=== PATIENT | female | born 1980 | race Caucasian/White ===

== ENCOUNTER 2016-09-20 05:53 | Observation (INO) | payer OTHER ==
[~2016-09-20] VITALS: Ht 167.6 cm; Wt 54.0 kg
[~2016-09-20 05:53] MED LIST: IBUP600 PO; OXYC1SOL5 PO; PERI8.6T PO; PREN1TAB30
[2016-09-20 05:59] VITALS: BP 134/65; PULSE 87; RESP 16; TEMP 98.3; O2SAT 100
[2016-09-20] MEDS ORDERED: birthcontrol (06:20)
[2016-09-20] MEDS ORDERED: AMOX875T2 PO (06:20)
--- NOTE | 2016-09-20 06:29 | PD ---
HPI Chief Complaint: Skin Problem Time Seen by Provider: 06:29 Travel History International Travel<30 days: No Contact w/Intl Traveler<30days: No Traveled to known affect area: No History of Present Illness HPI 35-year-old female with no significant medical history, presents to the emergency department for evaluation of painful erythema and edema of the distal left second digit. Patient states she noticed some pain and a small amount of redness lateral to the nail of the left second digit 3 days ago. It had worsened Sunday and she had noticed 3 small lesions in the area of redness. She contacted [facility] physician on-line and was started on Augmentin. Patient has been taking this now for the past 2 days. Symptoms have only worsened. She woke up this morning with increased swelling and taught sensation of the distal affected digit as well as pain in the PIP and MCP joint of that digit. Patient can flex and extend the digit however flexion of the DIP of the affected digit is limited secondary to pain and tight sensation. States that the pad of the digit feels numb. There is also a red streak moving proximately up to the midforearm. Patient denies any fever or chills. States she has otherwise been well. [facility] Past Medical History Medical History: Denies Significant Hx ?: Not LMP: IRREGULAR Past Surgical History Section: Yes Social History Alcohol Use: No Tobacco Use: No Allergies-Medications (Allergen,Severity, Reaction): Coded Allergies: No Known Allergies (Unverified , 09/20/16) Reported Meds & Prescriptions Reported Meds & Active Scripts Active Reported Amoxicillin-Clavulanate 875-125 mg Tab 875 Mg PO BID not for use in CrCl <30 mL/minute [ birthcontrol] Review of Systems Except as stated in HPI: all other systems reviewed are Neg Physical Exam Narrative GENERAL: Well-nourished female patient, ambulatory and in no acute distress SKIN: Warm and dry. On the lateral aspect of the distal portion of the left second digit there is an area of edema and erythema that extends to the lateral aspect of the pad. There are three 2 mm sized whitish lesions with in this erythema. There is mild edema of the affected digit with slight red streak moving proximally from the affected digit to the midforearm. There is tenderness with palpation in the left axilla however I am unable to palpate any obvious lymph nodes. HEAD: Atraumatic. Normocephalic. EYES: Pupils equal and round. No scleral icterus. No injection or drainage. ENT: No nasal bleeding or discharge. Mucous membranes pink and moist. NECK: Trachea midline. CARDIOVASCULAR: Regular rate and rhythm. RESPIRATORY: No accessory muscle use. GASTROINTESTINAL: Abdomen nondistended. MUSCULOSKELETAL: No obvious deformities. No clubbing. No cyanosis. NEUROLOGICAL: Awake and alert. No obvious cranial nerve deficits. Motor grossly within normal limits. Normal speech. PSYCHIATRIC: Appropriate mood and affect; insight and judgment normal. Data Data Last Documented VS Vital Signs Date Time Temp Pulse Resp B/P Pulse Ox O2 Delivery O2 Flow Rate FiO2 09/20/16 05:59 98.3 87 16 134/65 100 Orders Iv Access Insert/Monitor (09/20/16 06:27) Complete Blood Count With Diff (09/20/16 06:27) Basic Metabolic Panel (Bmp) (09/20/16 06:27) Clindamycin Inj (Cleocin Inj) (09/20/16 06:30) Finger ([id number]) (09/20/16 ) Admit Order (Ed Use Only) (09/20/16 07:40) Vancomycin Inj (Vancomycin Inj) (09/20/16 07:45) Consult Hand Surgery (09/20/16 ) Consult Infectious Disease (09/20/16 ) Labs Laboratory Tests Test 09/20/16 06:30 White Blood Count 5.8 TH/MM3 Red Blood Count 4.56 MIL/MM3 Hemoglobin 14.5 GM/DL Hematocrit 41.9 % Mean Corpuscular Volume 91.8 FL Mean Corpuscular Hemoglobin 31.7 PG Mean Corpuscular Hemoglobin 34.6 % Concent Red Cell Distribution Width 12.3 % Platelet Count 220 TH/MM3 Mean Platelet Volume 9.9 FL Neutrophils (%) (Auto) 70.4 % Lymphocytes (%) (Auto) 17.3 % Monocytes (%) (Auto) 9.1 % Eosinophils (%) (Auto) 2.5 % Basophils (%) (Auto) 0.7 % Neutrophils # (Auto) 4.1 TH/MM3 Lymphocytes # (Auto) 1.0 TH/MM3 Monocytes # (Auto) 0.5 TH/MM3 Eosinophils # (Auto) 0.1 TH/MM3 Basophils # (Auto) 0.0 TH/MM3 CBC Comment DIFF FINAL Differential Comment Sodium Level 138 MEQ/L Potassium Level 4.1 MEQ/L Chloride Level 105 MEQ/L Carbon Dioxide Level 26.6 MEQ/L Anion Gap 6 MEQ/L Blood Urea Nitrogen 14 MG/DL Creatinine 0.81 MG/DL Estimat Glomerular Filtration 80 ML/MIN Rate Random Glucose 91 MG/DL Calcium Level 8.8 MG/DL MDM Medical Decision Making Medical Screen Exam Complete: Yes Emergency Medical Condition: Yes Medical Record Reviewed: Yes Differential Diagnosis Herpetic keshav versus paronychia versus felon versus lymphangitis versus cellulitis Narrative Course 35-year-old female presents to the emergency department for evaluation of a full erythema and edema of the distal left second digit. Physical findings are concerning for hepatic lobe however paronychia cannot be ruled out. I discussed the patient might attending physician Dr. Rizzo who also assessed the area and agrees that this is not a typical paronychial presentation. With the associated lymphangitis he suggests contacting hand specialist. I spoke with Dr. Joyner, hand specialist on-call. He recommends admission to medicine, IV antibiotics, and ID consultation if herpetic keshav is suspected. A call has been placed to [facility]. I spoke with Dr. Barnes. Patient will be admitted observation to service. He requests 1 g of vancomycin and consult placed to infectious disease I am contacted by the call center. Pt is to be admitted to [facility] provider despite PCP being on [facility] list. Admitting physician is changed to Dr. Jean. Diagnosis Primary Impression: Paronychia of left index finger Additional Impressions: Lymphangitis Failure of outpatient treatment Admitting Information Admitting Physician Requests: Observation Condition: Stable Aide Mack Sep 20, 2016 06:29
[2016-09-20] MEDS ORDERED: CLINDAMYCIN INJ 600 MG in SODIUM CHLORIDE 0.9% INJ 100 ML IV ONE (06:30)
[2016-09-20 07:06] LABS: AUTOMATED NEUTROPHIL # 4.1 TH/MM3 (1.8-7.7); BASOPHIL % 0.7 % (0.0-2.0); EOSINOPHIL # 0.1 TH/MM3 (0-0.4); EOSINOPHIL % 2.5 % (0.0-4.0); HEMATOCRIT 41.9 % (35.0-46.0); HEMO FLAGS DIFF FINAL; LYMPH % 17.3 % (9.0-44.0); MEAN CELL VOLUME 91.8 FL (80.0-100.0); MEAN CORPUSCULAR HEMOGLOBIN 31.7 PG (27.0-34.0); MEAN CORPUSCULAR HGB CONC 34.6 % (32.0-36.0); MONO % 9.1 % (0.0-8.0); NEUT % 70.4 % (16.0-70.0); PLATELET COUNT 220 TH/MM3 (150-450); RED BLOOD COUNT 4.56 MIL/MM3 (4.00-5.30); RED CELL DISTRIBUTION WIDTH 12.3 % (11.6-17.2); WHITE BLOOD COUNT 5.8 TH/MM3 (4.0-11.0)
[2016-09-20 07:20] LABS: BICARBONATE 26.6 MEQ/L (21.0-32.0); POTASSIUM 4.1 MEQ/L (3.5-5.1)
[2016-09-20] MEDS ORDERED: VANCOMYCIN INJ 1,000 MG in SODIUM CHLOR 0.9% 250 ML INJ 250 ML IV ONE (07:45)
--- NOTE | 2016-09-20 08:21 | RADRPT ---
EXAM DATE/TIME: 09/20/2016 07:20 [facility] COMPARISON: No previous studies available for comparison. INDICATIONS: Left hand, second digit pain, swelling and redness. MEDICAL HISTORY: None. SURGICAL HISTORY: None. ENCOUNTER: Initial ACUITY: 2 days PAIN SCORE: 6/10 LOCATION: Left hand, second digit FINDINGS: There is soft tissue swelling involving the left index finger. There is no acute fracture, dislocati on or radiopaque foreign body. CONCLUSION: 1. Soft tissue swelling involving the left index finger. 2. No acute fracture, dislocation or radiopaque foreign body. Dylon Steel MD on September 20, 2016 at 8:14 Board Certified Radiologist. This report was verified electronically.
[2016-09-20] MEDS ORDERED: diphenhydrAMINE HCL 50 MG/ML VIAL IV PUSH ONE (08:30)
--- NOTE | 2016-09-20 09:14 | HHI.HP ---
HPI Service [facility] Hospitalists Primary Care Physician Devon Zhu MD Admission Diagnosis L 2nd digit paronychia v herpetic keshav; lymphangitis Chief Complaint: Left hand second digit infection and lymphangitis Travel History International Travel<30 Days: No Contact w/Intl Traveler <30 Da: No Traveled to Known Affected Are: No History of Present Illness Mrs. Leach is a pleasant 35 y/o WF without significant medical history, who presented to the ED on 09/20/16 for evaluation of painful swelling and erythema of the distal left second digit. She reports that she initially noticed some pain and a small amount of redness lateral to the nail of the left second digit 3 days ago. She applied Bacitracin to it and soaked the finger. It had worsened Sunday and she had noticed 3 small white lesions on the lateral aspect in the area of redness. [facility] and was started on Augmentin 2 days ago. Patient has been taking 4 doses. Her symptoms worsened last night and this morning when she woke up she noted increased swelling and taught sensation of the distal affected digit as well as pain in the PIP and MCP joint of that digit. She also noted some red streaking in the mid forearm and tenderness in the left axilla. Pt also reports that the pad of the digit feels numb. She denies any fever or chills. She denies any known exposure to herpes virus or any previous history of HSV. Review of Systems Constitutional: DENIES: Fever, Chills Respiratory: DENIES: Cough, Shortness of breath Cardiovascular: DENIES: Chest pain Gastrointestinal: DENIES: Abdominal pain, Nausea, Vomiting Integumentary: COMPLAINS OF: Abnormal pigmentation Hematologic/lymphatic: DENIES: Lymphadenopathy Neurologic: COMPLAINS OF: Paresthesias, DENIES: Headache, Localized weakness Past Family Social History Past Medical History Seborrheic dermatitis Past Surgical History Cesarian section x 1 Reported Medications Amoxicillin-Clavulanate 875-125 mg Tab 875 Mg PO BID not for use in CrCl <30 mL/minute [ birthcontrol] Allergies: Coded Allergies: Vancomycin (Verified Adverse Reaction, Intermediate, Itching, 09/20/16) itching and redness after half of infusion. 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 Pt lives locally with her and daughter Physical Exam Vital Signs Vital Signs Date Time Temp Pulse Resp B/P Pulse Ox O2 Delivery O2 Flow Rate FiO2 09/20/16 05:59 98.3 87 16 134/65 100 Physical Exam GENERAL: This is a well-nourished, well-developed patient, in no apparent distress. HEENT: Atraumatic. Normocephalic. No temporal or scalp tenderness. No scleral icterus. Airway patent. NECK: Trachea midline, supple, nontender. CARDIO: Regular. RESP: CTA bilaterally. No wheezes, rales, or rhonchi. ABD: +BS, soft, non-tender, nondistended. EXT: Lateral aspect of the distal portion of the left second digit there is an area of edema and erythema that extends to the lateral aspect of the pad. There are three 2 mm sized whitish lesions within this area of erythema, no vesicales noted. Mild edema of the 2nd digit with slight red streak moving proximally from the affected digit to the midforearm. Decreased flexion of the DIP and PIP joint secondary to pain and swelling of the left 2nd digit. There is tenderness with palpation in the left axilla however no palpable lymph nodes noted. NEURO: Awake and alert. Motor and sensory grossly within normal limits. Normal speech. Laboratory Laboratory Tests Test 09/20/16 06:30 White Blood Count 5.8 Red Blood Count 4.56 Hemoglobin 14.5 Hematocrit 41.9 Mean Corpuscular Volume 91.8 Mean Corpuscular Hemoglobin 31.7 Mean Corpuscular Hemoglobin 34.6 Concent Red Cell Distribution Width 12.3 Platelet Count 220 Mean Platelet Volume 9.9 Neutrophils (%) (Auto) 70.4 Lymphocytes (%) (Auto) 17.3 Monocytes (%) (Auto) 9.1 Eosinophils (%) (Auto) 2.5 Basophils (%) (Auto) 0.7 Neutrophils # (Auto) 4.1 Lymphocytes # (Auto) 1.0 Monocytes # (Auto) 0.5 Eosinophils # (Auto) 0.1 Basophils # (Auto) 0.0 CBC Comment DIFF FINAL Differential Comment Sodium Level 138 Potassium Level 4.1 Chloride Level 105 Carbon Dioxide Level 26.6 Anion Gap 6 Blood Urea Nitrogen 14 Creatinine 0.81 Estimat Glomerular Filtration 80 Rate Random Glucose 91 Calcium Level 8.8 Result Diagram: 09/20/16 0630 09/20/16 0630 Septic Shock Reassessment Heart: Regular rate and rhythm Lungs: Clear Skin: Warm Peripheral Pulses: Bounding Right Radial Bounding Left Radial Bounding Right Popliteal Bounding Left Popliteal Bounding Right Dorsalis Pedis Bounding Left Dorsalis Pedis Bounding Right Posterior Tibial Bounding Left Posterior Tibial Capillary Refill: <2 seconds Assessment and Plan Problem List: (1) Lymphangitis Status: Acute Plan: - Pt admitted with a four day history worsening erythema, swelling of the distal lateral aspect of the left hand second digit. This morning noted red streaking up the left forearm and tenderness in the left axilla. - Pt was given a dose of Clindamycin in the ER and was started on Vancomycin but she developed some itching and slight generalized skin erythema on the chest and back and the Vancomycin was stopped and the pt was given a dose of Benadryl. - We will continue the Clindamycin 600mg IV Q8H for now - ID and Hand Surgery has been consulted. - There is concern for possible Herpetic keshav with the noted lesions on the distal, lateral aspect of the left 2nd digit but pt unaware of any exposure to HSV and no personal history of HSV - Await ID evaluation - Benadryl PRN - Pain meds PRN - Zofran PRN - Supportive care (2) Paronychia of left index finger Status: Acute Plan: - See above. Assessment and Plan Patient examined. Assessment and plan formulated with Christina Brown PA-C. I agree with the above. cellulitis with lymphangitic spread from left index finger. 3 small lesions..not vesicles on left finger tip. probably strep cellulitis but possible underlying herpetic keshav. discussed with ID. improving on clinda already. pt prefers going home today and will return if worsens. clinda and acyclovir x 1 week. Christina Brown Sep 20, 2016 09:14 Kemal Jean MD Sep 20, 2016 14:52
[2016-09-20] MEDS ORDERED: ONDANSETRON HCL 4 MG/2 ML VIAL IV PRN (09:15)
[2016-09-20] MEDS ORDERED: ACETAMINOPHEN 325 MG TAB PO PRN (09:15)
[2016-09-20] MEDS ORDERED: traMADol HCL 50 MG TAB PO PRN (10:00)
--- NOTE | 2016-09-20 13:49 | PD.CONS ---
History of Present Illness Service Infectious disease Consult Requested By Rosalee Oakes Reason for Consult Evaluate patient with finger infection, herpetic keshav versus paronychia Primary Care Physician Devon Zhu MD Diagnoses: History of Present Illness Patient seen and examined. Records reviewed. 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 She initially noted this redness on the lateral aspect of her left second finger. It was slightly red and painful and it felt like she had a hangnail. She kept it covered and went to work, but it the redness started getting worse and he started going to the base of her left second fingernail. She called her primary care physician, and they did a telemedicine evaluation and she was treated for possible paronychia and was given Augmentin. The night prior to admission it was getting more painful, and she started noticing redness going up her hand and forearm with some discomfort in her left armpit. She did not have any fever or chills or sweats. She has not had any sore throat or any other respiratory complaints. She presented to the hospital for further evaluation and treatment. IV vancomycin and fpc during the infusion she started getting redness on her face and some itching. It was stopped. She was put on clindamycin, and she has noted improvement in the area of red streaks in her hand and forearm. Since admission she has not been febrile. Her WBC is normal. She had noted some improvement in the swelling and she is able to move her finger a little bit better than before she came in. She has no prior history of cold sore. Infectious disease consultation requested to evaluate the patient. Review of Systems Constitutional: DENIES: Fever, Chills Eyes: DENIES: Eye pain Ears, nose, mouth, throat: DENIES: Nasal discharge, Oral lesions, Throat pain Respiratory: DENIES: Cough, Shortness of breath Cardiovascular: DENIES: Chest pain Gastrointestinal: COMPLAINS OF: Abdominal pain, DENIES: Nausea, Vomiting Past Family Social History Allergies: Coded Allergies: Vancomycin (Verified Adverse Reaction, Intermediate, Itching, 09/20/16) itching and redness after half of infusion. 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 Pt lives locally with her and daughter Physical Exam Vital Signs Vital Signs Date Time Temp Pulse Resp B/P Pulse Ox O2 Delivery O2 Flow Rate FiO2 09/20/16 05:59 98.3 87 16 134/65 100 Physical Exam GENERAL: This is a well-nourished, well-developed female, in no apparent distress. SKIN: Cool and dry. No generalized rash HEAD: Atraumatic. Normocephalic. No temporal or scalp tenderness. EYES: Extraocular motions intact. No scleral icterus. No injection or drainage. ENT: Nose without bleeding, or purulent drainage MUSCULOSKELETAL: L hand - has area of induration and redness at base of her L second fuingernail, with swelling of that distal finger. She has 3 discrete areas of round ?pustules that measures about 2-3 mm size. There is still afaint area on erythema on dorsum of her L hand proximal to the 2nd MCP, and very minimal going up her forearm. Did not feel any adenopathy in her L axilla Laboratory Laboratory Tests Test 09/20/16 06:30 White Blood Count 5.8 Red Blood Count 4.56 Hemoglobin 14.5 Hematocrit 41.9 Mean Corpuscular Volume 91.8 Mean Corpuscular Hemoglobin 31.7 Mean Corpuscular Hemoglobin 34.6 Concent Red Cell Distribution Width 12.3 Platelet Count 220 Mean Platelet Volume 9.9 Neutrophils (%) (Auto) 70.4 Lymphocytes (%) (Auto) 17.3 Monocytes (%) (Auto) 9.1 Eosinophils (%) (Auto) 2.5 Basophils (%) (Auto) 0.7 Neutrophils # (Auto) 4.1 Lymphocytes # (Auto) 1.0 Monocytes # (Auto) 0.5 Eosinophils # (Auto) 0.1 Basophils # (Auto) 0.0 CBC Comment DIFF FINAL Differential Comment Sodium Level 138 Potassium Level 4.1 Chloride Level 105 Carbon Dioxide Level 26.6 Anion Gap 6 Blood Urea Nitrogen 14 Creatinine 0.81 Estimat Glomerular Filtration 80 Rate Random Glucose 91 Calcium Level 8.8 Result Diagram: 09/20/1662909/20/16629 Imaging Finger X-Ray 2/8/17 0000 Signed Impressions: Service Date/Time: Tuesday, September 20, 2016 07:20 - CONCLUSION: 1. Soft tissue swelling involving the left index finger. 2. No acute fracture, dislocation or radiopaque foreign body. Dylon Steel MD Assessment and Plan Assessment and Plan IMPRESSION L index finger infection, possibly started as Herpetic keshav but developed secondary infection with lymphangitis - has responded to clindamycin RECOMMENDATION Give Acyclovir 400 tid x 7 days - will offer healing, resolution quicker, though no formal study to look at this; has been beneficial to other HSV skin infections Give Clinda for the lymphangitis 300 tid 7-10 days Clinically looks stable from ID standpoint Thank you for this consultation Discussed Condition With Explained plan to patient D/W Tonya Ny MD Sep 20, 2016 13:49
[2016-09-20] MEDS ORDERED: diphenhydrAMINE HCL 25 MG CAP PO PRN (14:15)
[2016-09-20] MEDS: CLINDAMYCIN INJ 600 MG in SODIUM CHLORIDE 0.9% INJ 100 ML IV SCH ×2 (14:22→15:00)
[2016-09-20] MEDS ORDERED: CLIN1CAP6 PO (14:35)
[2016-09-20] MEDS ORDERED: ACYC400T PO (14:35)
--- NOTE | 2016-09-20 14:37 | HHI.DCPOC ---
Discharge Care Plan Diagnosis: (1) Lymphangitis (2) Paronychia of left index finger Goals to Promote Your Health * To prevent worsening of your condition and complications * To maintain your health at the optimal level Directions to Meet Your Goals Take your medications as prescribed Follow your dietary instruction Follow activity as directed Keep your appointments as scheduled Take your immunizations and boosters as scheduled If your symptoms worsen call your PCP, if no PCP go to Urgent Care Center or Emergency Room Smoking is Dangerous to Your Health. Avoid second hand smoke Call the 24-hour hour crisis hotline for domestic abuse at Christina Brown Sep 20, 2016 14:37
[2016-09-20] MEDS ORDERED: ACYCLOVIR 200 MG CAP PO SCH (15:00)
== END 2016-09-20 15:11 | disposition home or self-care (01) ==
LOC: NEPB 05:53 → NEDA 07:45 → UNDOADMOB 07:46 → NEDA 07:46 → NEPB 09:48
PROVIDERS: ADMIT Hospitalist; ATTEND Hospitalist
DX: L03.022 Acute lymphangitis of left finger (principal); L03.012 Cellulitis of left finger; L29.9 Pruritus, unspecified; T36.8X5A Adverse effect of other systemic antibiotics, initial encounter; Y92.239 Unspecified place in hospital as the place of occurrence of the external cause
CPT/HCPCS: 73140; 80048; 85025; 96365; 99284; G0378; J1200; J3370; J7050

== ENCOUNTER 2017-01-27 12:11 | Emergency (ER) | payer OTHER ==
[~2017-01-27] VITALS: Ht 167.6 cm; Wt 54.5 kg
[~2017-01-27 12:11] MED LIST changes: +ACYC400T PO; +AMOX875T2 PO; +CLIN1CAP6 PO; -IBUP600 PO; -OXYC1SOL5 PO; -PERI8.6T PO; -PREN1TAB30; +birthcontrol
[2017-01-27 12:15] VITALS: BP 180/96; PULSE 76; RESP 20; O2SAT 100
[2017-01-27] MEDS ORDERED: SERT-132 PO (12:28)
[2017-01-27] MEDS ORDERED: SODIUM CHLOR 0.9% 1000 ML INJ 1,000 ML IV SCH (13:08)
[2017-01-27] MEDS ORDERED: MECLIZINE HCL 25 MG TAB PO ONE (13:15)
[2017-01-27] MEDS ORDERED: ONDANSETRON HCL 4 MG/2 ML VIAL IV PUSH ONE (13:15)
[2017-01-27 13:42] LABS: AUTOMATED NEUTROPHIL # 10.2 TH/MM3 (1.8-7.7); BASOPHIL # 0.1 TH/MM3 (0-0.2); BASOPHIL % 0.6 % (0.0-2.0); EOSINOPHIL % 0.3 % (0.0-4.0); HEMATOCRIT 39.4 % (35.0-46.0); HEMO FLAGS DIFF FINAL; LYMPH % 6.6 % (9.0-44.0); LYMPHOCYTE # 0.8 TH/MM3 (1.0-4.8); MEAN CELL VOLUME 92.4 FL (80.0-100.0); MEAN CORPUSCULAR HEMOGLOBIN 31.3 PG (27.0-34.0); MEAN CORPUSCULAR HGB CONC 33.9 % (32.0-36.0); MONO % 3.8 % (0.0-8.0); NEUT % 88.7 % (16.0-70.0); PLATELET COUNT 191 TH/MM3 (150-450); RED BLOOD COUNT 4.26 MIL/MM3 (4.00-5.30); RED CELL DISTRIBUTION WIDTH 12.8 % (11.6-17.2); WHITE BLOOD COUNT 11.5 TH/MM3 (4.0-11.0)
[2017-01-27 13:50] LABS: BACTERIA, URINE OCC /hpf; BLOOD, URINE NEG (NEG); COMMENT (UR) CULT NOT INDICATED; CULTURE IF INDICATED CULT NOT INDICATED; GLUCOSE,URINE NEG (NEG); KETONE, URINE 40 mg/dL (NEG); MUCUS URINE FEW /lpf (OCC); NITRITE,URINE NEG (NEG); PH, URINE 7.5 (5.0-8.5); SQUAMOUS EPITHELIAL CELL URINE <1 /hpf (0-5); URINE COLOR YELLOW (YELLW/STRAW)
[2017-01-27 14:01] LABS: ANION GAP 12 MEQ/L (5-15); BICARBONATE 23.4 MEQ/L (21.0-32.0); BLOOD UREA NITROGEN 15 MG/DL (7-18); CHLORIDE 105 MEQ/L (98-107); GLOMERULAR FILTRATION RATE 73 ML/MIN (>89); POTASSIUM 3.6 MEQ/L (3.5-5.1); SODIUM (NA) 140 MEQ/L (136-145)
[2017-01-27 14:03] LABS: ALT (GPT) 21 U/L (10-53); AST (GOT) 17 U/L (15-37)
[2017-01-27 14:05] LABS: ALKALINE PHOSPHATASE 47 U/L (45-117); TOTAL BILIRUBIN ADULT 0.6 MG/DL (0.2-1.0)
--- NOTE | 2017-01-27 14:31 | RADRPT ---
EXAM DATE/TIME: 01/27/2017 14:21 [facility] COMPARISON: No previous studies available for comparison. INDICATIONS : Cephaligia today RADIATION DOSE: 50.12 CTDIvol (mGy) MEDICAL HISTORY : None SURGICAL HISTORY : None. ENCOUNTER: Initial ACUITY: 1 day PAIN SCALE: 7/10 LOCATION: Bilateral head TECHNIQUE: Multiple contiguous axial images were obtained of the head. Using automated exposure control and adj ustment of the mA and/or kV according to patient size, radiation dose was kept as low as reasonably a chievable to obtain optimal diagnostic quality images. FINDINGS: CEREBRUM: The ventricles are normal for age. No evidence of midline shift, mass lesion, hemorrhage or acute in farction. No extra-axial fluid collections are seen. POSTERIOR FOSSA: The cerebellum and brainstem are intact. The 4th ventricle is midline. The cerebellopontine angle i s unremarkable. EXTRACRANIAL: The visualized portion of the orbits is intact. SKULL: The calvaria is intact. No evidence of skull fracture. CONCLUSION: 1. No acute intracranial abnormality. Ashwin Blanco MD on January 27, 2017 at 14:27 Board Certified Radiologist. This report was verified electronically.
[2017-01-27 14:33] VITALS: BP 128/64; PULSE 65; RESP 16; O2SAT 100
--- NOTE | 2017-01-27 14:54 | PD ---
HPI Chief Complaint: Dizziness Time Seen by Provider: 14:50 Travel History International Travel<30 days: No Contact w/Intl Traveler<30days: No Traveled to known affect area: No History of Present Illness HPI 36-year-old female that presents to the ED for evaluation of headache and dizziness as well as nausea and vomiting. Per patient she's had this for the past 2 days. Per patient he started yesterday. Per patient he starts with a headache that tends to be severe on the left side and then disappears to this pain with medication and then it turns into a lightheadedness/dizziness. Per patient he feels like the room spinning and she gets nauseous and she vomits. Per patient she also feels like she has ear fullness. She denies any chest pain or shortness of breath or palpitations. Per patient she's never had this before. She does have history of migraine headaches but never like this. She does have a history of high blood pressure when she was . Allergy to vancomycin. Per patient the symptoms continued today which is what made her come here today. Per patient and symptoms to follow the same pattern. Per patient the headache now is not as severe but she feels like the lightheadedness and dizziness is coming. She's been taking [id number] remedies with some relief but the dizziness continues and he feels like the room spinning. Pain per patient is 8 out of 10 and pressure-like and it becomes severe. At this time her headache is 4 out of 10. PFSH Past Medical History ?: Not LMP: 12/30/16 Past Surgical History Section: Yes Social History Alcohol Use: No Tobacco Use: No Substance Use: No Allergies-Medications (Allergen,Severity, Reaction): Coded Allergies: Vancomycin (Verified Adverse Reaction, Intermediate, Itching, 01/27/17) itching and redness after half of infusion. Reported Meds & Prescriptions Reported Meds & Active Scripts Active Reported Sertraline (Sertraline HCl) 50 Mg Tab 50 Mg PO DAILY [ birthcontrol] Review of Systems Except as stated in HPI: all other systems reviewed are Neg Physical Exam Narrative GENERAL: Well-nourished, well-developed patient in no apparent distress. SKIN: Warm and dry. HEAD: Atraumatic. Normocephalic. EYES: Pupils equal and round reactive to light and accommodation. No scleral icterus. No injection or drainage. ENT: No nasal bleeding or discharge. Mucous membranes pink and moist. TMs are clear with no sign of infection or perforation. No mastoid tenderness. Ear canals are intact bilaterally. No lymphadenopathy. Nostril mucosa is red and moist with clear mucus noted. No sinus tenderness to palpation noted. Tonsils are not enlarged or swollen. No ulvua Deviation. Tongue is midline. NECK: Trachea midline. No JVD. No meningeal signs noted CARDIOVASCULAR: Regular rate and rhythm. RESPIRATORY: No accessory muscle use. Clear to auscultation. Breath sounds equal bilaterally. GASTROINTESTINAL: Abdomen soft, non-tender, nondistended. Hepatic and splenic margins not palpable. MUSCULOSKELETAL: Extremities without clubbing, cyanosis, or edema. No obvious deformities. Full range of motion of the upper and lower extremities bilaterally. 2+ pulses bilaterally. 5 out of 5 strength bilaterally. No lumbar, thoracic, cervical spine tenderness to palpation. No lymphadenopathy noted. NEUROLOGICAL: Awake and alert. No obvious cranial nerve deficits. Motor grossly within normal limits. Five out of 5 muscle strength in the arms and legs. Normal speech. PSYCHIATRIC: Appropriate mood and affect; insight and judgment normal. Data Data Last Documented VS Vital Signs Date Time Temp Pulse Resp B/P Pulse Ox O2 Delivery O2 Flow Rate FiO2 01/27/17 14:33 65 16 128/64 100 Room Air Orders Electrocardiogram (01/27/17 13:08) Complete Blood Count With Diff (01/27/17 13:08) Comprehensive Metabolic Panel (01/27/17 13:08) Urinalysis - C+S If Indicated (01/27/17 13:08) Magnesium (Mg) (01/27/17 13:08) Ct Brain W/O Iv Contrast(Rout) (01/27/17 13:08) Iv Access Insert/Monitor (01/27/17 13:08) Ecg Monitoring (01/27/17 13:08) Oximetry (01/27/17 13:08) Ed Urine Pregnancytest Poc (01/27/17 13:08) Ondansetron Inj (Zofran Inj) (01/27/17 13:15) Meclizine (Antivert) (01/27/17 13:15) Sodium Chlor 0.9% 1000 Ml Inj (Ns 1000 M (01/27/17 13:08) Dexamethasone Inj (Decadron Inj) (01/27/17 15:15) Labs Laboratory Tests Test 01/27/17 01/27/17 13:18 13:20 White Blood Count 11.5 TH/MM3 Red Blood Count 4.26 MIL/MM3 Hemoglobin 13.3 GM/DL Hematocrit 39.4 % Mean Corpuscular Volume 92.4 FL Mean Corpuscular Hemoglobin 31.3 PG Mean Corpuscular Hemoglobin 33.9 % Concent Red Cell Distribution Width 12.8 % Platelet Count 191 TH/MM3 Mean Platelet Volume 11.0 FL Neutrophils (%) (Auto) 88.7 % Lymphocytes (%) (Auto) 6.6 % Monocytes (%) (Auto) 3.8 % Eosinophils (%) (Auto) 0.3 % Basophils (%) (Auto) 0.6 % Neutrophils # (Auto) 10.2 TH/MM3 Lymphocytes # (Auto) 0.8 TH/MM3 Monocytes # (Auto) 0.4 TH/MM3 Eosinophils # (Auto) 0.0 TH/MM3 Basophils # (Auto) 0.1 TH/MM3 CBC Comment DIFF FINAL Differential Comment Sodium Level 140 MEQ/L Potassium Level 3.6 MEQ/L Chloride Level 105 MEQ/L Carbon Dioxide Level 23.4 MEQ/L Anion Gap 12 MEQ/L Blood Urea Nitrogen 15 MG/DL Creatinine 0.87 MG/DL Estimat Glomerular Filtration 73 ML/MIN Rate Random Glucose 97 MG/DL Calcium Level 9.1 MG/DL Magnesium Level 2.0 MG/DL Total Bilirubin 0.6 MG/DL Aspartate Amino Transf 17 U/L (AST/SGOT) Alanine Aminotransferase 21 U/L (ALT/SGPT) Alkaline Phosphatase 47 U/L Total Protein 8.0 GM/DL Albumin 4.0 GM/DL Urine Color YELLOW Urine Turbidity HAZY Urine pH 7.5 Urine Specific [place] 1.019 Urine Protein NEG mg/dL Urine Glucose (UA) NEG mg/dL Urine Ketones 40 mg/dL Urine Occult Blood NEG Urine Nitrite NEG Urine Bilirubin NEG Urine Urobilinogen LESS THAN 2.0 MG/DL Urine Leukocyte Esterase NEG Urine RBC 1 /hpf Urine WBC 2 /hpf Urine Squamous Epithelial <1 /hpf Cells Urine Amorphous Sediment RARE Urine Bacteria OCC /hpf Urine Mucus FEW /lpf Microscopic Urinalysis Comment CULT NOT INDICATED MDM Medical Decision Making Medical Screen Exam Complete: Yes Emergency Medical Condition: Yes Medical Record Reviewed: Yes Interpretation(s) CBC & BMP Diagram 01/27/17 13:18 LFTS WNL Last Impressions Head CT 01/27/17 1308 Signed Impressions: Service Date/Time: Sunday, January 27, 2017 14:21 - CONCLUSION: 1. No acute intracranial abnormality. Ashwin Blanco MD EKG shows sinus rhythm with no sign of acute ischemia or arrhythmia read by me and attending. UA negative for acute disease. Differential Diagnosis Vertigo versus hypertension versus ICH versus electrolyte abnormality versus anemia versus infection versus labyrinthitis versus BPPV Narrative Course 36-year-old female that presents to the ED for evaluation of dizziness and headache. Patient was properly examined and was found to have signs and symptoms of unclear etiology. Patient does appear to have some symptoms consistent with vertigo but the headache is initial. Examination of this time is for labs and imaging. Patient was given meclizine as well as Zofran and IV fluids IV. Case discussed in my attending Dr. Arechiga who evaluated the patient and recommends treatment with dexamethasone here and prescriptions for meclizine and Zofran to go home with. From history and physical this appears to be acute labyrinthitis. Patient was told that if she develops any new symptoms or rash and is to come back immediately. She agrees and understands. See ED for worsening symptoms. Diagnosis Primary Impression: Labyrinthitis, acute Qualified Code: H83.01 - Labyrinthitis, acute, right Patient Instructions: General Instructions Additional Instructions: Take medications as prescribed. Follow with PCP or ENT next week. See ED for any worsening symptoms. Rest and fluids. Med/Other Pt SpecificInfo: Prescription(s) given Scripts Ondansetron (Zofran)4 Mg Tab4 Mg PO Q6HR PRN (NAUSEA OR VOMITING) #20 TAB Prov:Sanket Arechiga MD 01/27/17 Meclizine 25 Mg Tab25 Mg PO TID PRN (VERTIGO) #20 TAB Ref 0 Prov:Sanket Arechiga MD 01/27/17 Disposition: 01 DISCHARGE HOME Condition: Stable Adrian Ron Jan 27, 2017 14:54
[2017-01-27] MEDS ORDERED: MECL-62 PO (15:08)
[2017-01-27] MEDS ORDERED: ZOFR4TAB PO (15:08)
[2017-01-27] MEDS ORDERED: DEXAMETHASONE SOD PHOS 20 MG/5 ML VIAL IV PUSH ONE (15:15)
--- NOTE | 2017-01-27 16:00 | PD ---
Physical Exam Date Seen by Provider: Jan 27, 2017 Time Seen by Provider: 14:30 Narrative 36-year-old female came to the emergency room with history of on and off tinnitus, headache and vertigo sensation. Patient says this has been going on since yesterday morning. This has been progressively worsening up until this morning when she woke up and as the day progressed the dizziness got extreme. She was very nauseous and was vomiting. Her friend drove her to the emergency room. 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 She was given an excellent history regarding the sequence of events. Patient is seen by the PA and I'm supervising him. She got workup done including CAT scan of her head which were within normal limit except for slight leukocytosis. She also received IV fluid bolus and meclizine. Currently her symptoms are significantly improved she said. Given her symptoms my suspicion is really high for acute labyrinthitis. I explained this to her at length. Patient had some URI symptoms one or 2 months ago but currently there is no nasal congestion. She did mention that she was diagnosed with a herpetic keshav in September that was super infected and was treated with antibiotics as well as acyclovir. I explained to her that in extreme cases there is a chance for complication as Membreno's palsy. 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 She understood the complication. I urged her to return to the emergency room as soon as she starts getting any symptoms of Membreno's palsy in extreme scenario. She understood and was comfortable with the plan of being discharged. She'll be discharged home on a prescription for meclizine and Zofran. Data Data Last Documented VS Vital Signs Date Time Temp Pulse Resp B/P Pulse Ox O2 Delivery O2 Flow Rate FiO2 01/27/17 14:33 65 16 128/64 100 Room Air Orders Electrocardiogram (01/27/17 13:08) Complete Blood Count With Diff (01/27/17 13:08) Comprehensive Metabolic Panel (01/27/17 13:08) Urinalysis - C+S If Indicated (01/27/17 13:08) Magnesium (Mg) (01/27/17 13:08) Ct Brain W/O Iv Contrast(Rout) (01/27/17 13:08) Iv Access Insert/Monitor (01/27/17 13:08) Ecg Monitoring (01/27/17 13:08) Oximetry (01/27/17 13:08) Ed Urine Pregnancytest Poc (01/27/17 13:08) Ondansetron Inj (Zofran Inj) (01/27/17 13:15) Meclizine (Antivert) (01/27/17 13:15) Sodium Chlor 0.9% 1000 Ml Inj (Ns 1000 M (01/27/17 13:08) Dexamethasone Inj (Decadron Inj) (01/27/17 15:15) Labs Laboratory Tests Test 01/27/17 01/27/17 13:18 13:20 White Blood Count 11.5 TH/MM3 Red Blood Count 4.26 MIL/MM3 Hemoglobin 13.3 GM/DL Hematocrit 39.4 % Mean Corpuscular Volume 92.4 FL Mean Corpuscular Hemoglobin 31.3 PG Mean Corpuscular Hemoglobin 33.9 % Concent Red Cell Distribution Width 12.8 % Platelet Count 191 TH/MM3 Mean Platelet Volume 11.0 FL Neutrophils (%) (Auto) 88.7 % Lymphocytes (%) (Auto) 6.6 % Monocytes (%) (Auto) 3.8 % Eosinophils (%) (Auto) 0.3 % Basophils (%) (Auto) 0.6 % Neutrophils # (Auto) 10.2 TH/MM3 Lymphocytes # (Auto) 0.8 TH/MM3 Monocytes # (Auto) 0.4 TH/MM3 Eosinophils # (Auto) 0.0 TH/MM3 Basophils # (Auto) 0.1 TH/MM3 CBC Comment DIFF FINAL Differential Comment Sodium Level 140 MEQ/L Potassium Level 3.6 MEQ/L Chloride Level 105 MEQ/L Carbon Dioxide Level 23.4 MEQ/L Anion Gap 12 MEQ/L Blood Urea Nitrogen 15 MG/DL Creatinine 0.87 MG/DL Estimat Glomerular Filtration 73 ML/MIN Rate Random Glucose 97 MG/DL Calcium Level 9.1 MG/DL Magnesium Level 2.0 MG/DL Total Bilirubin 0.6 MG/DL Aspartate Amino Transf 17 U/L (AST/SGOT) Alanine Aminotransferase 21 U/L (ALT/SGPT) Alkaline Phosphatase 47 U/L Total Protein 8.0 GM/DL Albumin 4.0 GM/DL Urine Color YELLOW Urine Turbidity HAZY Urine pH 7.5 Urine Specific [place] 1.019 Urine Protein NEG mg/dL Urine Glucose (UA) NEG mg/dL Urine Ketones 40 mg/dL Urine Occult Blood NEG Urine Nitrite NEG Urine Bilirubin NEG Urine Urobilinogen LESS THAN 2.0 MG/DL Urine Leukocyte Esterase NEG Urine RBC 1 /hpf Urine WBC 2 /hpf Urine Squamous Epithelial <1 /hpf Cells Urine Amorphous Sediment RARE Urine Bacteria OCC /hpf Urine Mucus FEW /lpf Microscopic Urinalysis Comment CULT NOT INDICATED MDM Supervised Visit with GABE: Yes Diagnosis Primary Impression: Labyrinthitis, acute Qualified Code: H83.01 - Labyrinthitis, acute, right Patient Instructions: General Instructions Departure Forms: Tests/Procedures Additional Instruction: Take medications as prescribed. Follow with PCP or ENT next week. See ED for any worsening symptoms. Rest and fluids. Scripts Ondansetron (Zofran)4 Mg Tab4 Mg PO Q6HR PRN (NAUSEA OR VOMITING) #20 TAB Prov:Sanket Arechiga MD 01/27/17 Meclizine 25 Mg Tab25 Mg PO TID PRN (VERTIGO) #20 TAB Ref 0 Prov:Sanket Arechiga MD 01/27/17 Disposition: 01 DISCHARGE HOME Condition: Stable Sanket Arechiga MD Jan 27, 2017 16:00
--- NOTE | 2017-01-28 12:30 | EKG ---
Date Performed: 01/27/2017 Time Performed: 13:23:48 PTAGE: 36 years EKG: Sinus rhythm WITH SHORT OR INTERVAL POSSIBLE LEFT ATRIAL ENLARGEMENT POSSIBLE RIGHT VENTRICULAR CONDUCTION DELAY BORDERLINE ECG NO PREVIOUS TRACING DOCTOR: Jose Dumont Interpretating Date/Time 01/28/2017 12:26:20
== END 2017-01-27 15:20 | disposition home or self-care (01) ==
LOC: NEPD 12:11
DX: H83.01 Labyrinthitis, right ear (principal); R42 Dizziness and giddiness; D72.829 Elevated white blood cell count, unspecified
CPT/HCPCS: 70450; 80053; 81001; 83735; 84703; 85025; 93005; 96361; 96374; 96375; 99285; J1100; J7030